=== PATIENT | female | born 1980 | race Caucasian/White ===

== ENCOUNTER 2016-08-08 20:29 | Emergency (ER) | payer BC, OTHER ==
[~2016-08-08] VITALS: Ht 162.6 cm; Wt 94.5 kg
[2016-08-08 20:33] VITALS: Ht 162.6 cm; Wt 94.5 kg
[2016-08-08] MEDS ORDERED: ACETAMINOPHEN 325 MG TAB PO ONE (23:00)
--- NOTE | 2016-08-08 23:23 | ERD ---
ER Documentation Chief Complaint Date/Time DATE: 08/08/16 TIME: 23:18 Chief Complaint 7 weeks , vag bleeding today HPI This pleasant 33-year-old female presenting to emergency department today with her for vaginal bleeding. Patient reports that she is according to home test, approximately 7 weeks. Last menstrual period June 26, 2016. Patient reports that she started bleeding yesterday described as blood on toilet paper with wiping, she also had similar symptoms this morning she is not bleeding now. Patient denies dysuria, nausea, vomiting , or dizziness. Patient reports difficulty eating or drinking, she denies any pelvic cramping or back pain. ROS All systems reviewed and are negative except as per history of present illness. Medications Home Meds Active Scripts Acetaminophen* (Tylophen*) 500 Mg Capsule, 1 CAP PO Q6H Y for PAIN AND OR ELEVATED TEMP, #20 CAP Prov:ALLY DORADO NP 08/10/16 Reported Medications [none] Unknown Strength No Conflict Check 08/10/16 Allergies Allergies: Coded Allergies: No Known Allergy (Unverified , 08/08/16) PMhx/Soc Medical and Surgical Hx: pt denies Medical Hx, pt denies Surgical Hx History of Surgery: No Anesthesia Reaction: No Hx Neurological Disorder: No Hx Respiratory Disorders: No Hx Cardiac Disorders: No Hx Psychiatric Problems: No Hx Miscellaneous Medical Probl: No Hx Alcohol Use: No Hx Substance Use: No Hx Tobacco Use: No Smoking Status: Never smoker Physical Exam Vitals Vitals stable, triage notes reviewed Physical Exam Const: No acute distress Head: Atraumatic Eyes: Normal Conjunctiva no pallor, PERRLA ENT: Normal External Ears, Nose and Mouth. Mucous membranes moist Neck: Resp: Cardio: Abd: Soft, non tender, non distended. Normal bowel sounds, negative CVA tenderness Skin: Back: No midline or flank tenderness Ext: No cyanosis, or edema Neur: Awake and alert Psych: Normal Mood and Affect Results 24 hrs Laboratory Tests Test 08/08/16 22:45 08/08/16 23:34 08/08/16 23:38 Urine Color LT. YELLOW Urine Clarity CLEAR Urine pH 6.0 Urine Specific [place] 1.010 Urine Ketones NEGATIVE Urine Nitrite NEGATIVE Urine Bilirubin NEGATIVE Urine Urobilinogen 0.2 E.U./dL Urine Leukocyte Esterase TRACE Urine Microscopic RBC 5-10/HPF Urine Microscopic WBC 5-10/HPF Urine Squamous Epithelial Cells FEW Urine Hemoglobin 1+ Urine Glucose NEGATIVE% Urine Total Protein NEGATIVE Bedside Urine pH (LAB) 6.5 Bedside Urine Protein (LAB) Negative Bedside Urine Glucose (UA) Negative Bedside Urine Ketones (LAB) Negative Bedside Urine Blood 2+ Bedside Urine Nitrite (LAB) Negative Bedside Urine Leukocyte Esterase (L Negative White Blood Count 7.510^3/ul Red Blood Count 4.1210^6/ul Hemoglobin 12.7g/dl Hematocrit 37.6% Mean Corpuscular Volume 91.3fl Mean Corpuscular Hemoglobin 30.8pg Mean Corpuscular Hemoglobin Concent 33.8g/dl Red Cell Distribution Width 12.7% Platelet Count 46305^3/UL Mean Platelet Volume 10.7fl Neutrophils % 64.1% Lymphocytes % 28.1% Monocytes % 6.3% Eosinophils % 0.8% Basophils % 0.4% Nucleated Red Blood Cells % 0.0/100WBC Neutrophils # 4.810^3/ul Lymphocytes # 2.110^3/ul Monocytes # 0.510^3/ul Eosinophils # 0.110^3/ul Basophils # 0.010^3/ul Nucleated Red Blood Cells # 0.010^3/ul Beta HCG, Quantitative 666.4mIU/ml Current Medications Medications (Trade) Dose Ordered Sig/Anne-Marie Route PRN Reason Start Time Stop Time Status Last Admin Dose Admin Acetaminophen (Tylenol Tab) 650 mg ONCE ONCE PO 08/08/16 23:00 08/08/16 23:03 DC 08/08/16 23:30 Urinalysis presents with microscopic hematuria, trace leukocytes, no nitrates. Procedures/MDM PROCEDURE: US OB. CLINICAL INDICATION: Vaginal bleeding. TECHNIQUE: Multiple sonographic images of the pelvis were obtained. Transabdominal and transvaginal views of the pelvis are available for review. The images were reviewed on a PACS workstation. COMPARISON: No prior studies are available for comparison. FINDINGS: The uterus measures 9.4 x 5.3 x 7.3 cm. A 0.29 cm sonolucency seen within the fundal endometrial canal. If this represents a gestational sac, its size corresponds to a 0-btrg-6-day . No subchorionic hemorrhage is identified. The right ovary measures 3.4 x 2.2 x 2.4 cm. There is a 1.6 cm right ovarian cyst which contains a thin, avascular septation, likely benign. The left ovary measures 2.9 x 1.5 x 2.3 cm. Vascular flow is demonstrated to both ovaries. The adnexa are unremarkable. There is no free fluid. IMPRESSION: 1. There is a 0.29 cm sonolucency within the fundal endometrial canal, nonspecific but possibly an early gestational sac. If this does represent a gestational sac, its size corresponds to a 4-qjdm-0-day . Continued follow-up is recommended. 2. Benign appearing 1.6 cm right ovarian cyst. 3. Normal appearance of the left ovary. This 35-year-old female presents to emergency department with positive home test, and vaginal bleeding. She reports vaginal bleeding is on toilet paper not actively bleeding at this time. Suspected threatened miscarriage, ectopic , normal early . Urinalysis is negative for evidence of infection, trace leukocytes suspected as contaminated or vaginal farrukh. Beta quant at 666.4. OB ultrasound transabdominal and transvaginal views documents a 0.29 cm sonolucencies seen within the fundal endometrial cavity if this represents a gestational sac size corresponds to 4 weeks 6 day no subchorionic hemorrhage is identified the right ovary presents with a 1.6 cm ovarian cysts which contains a thin avascular septation left likely benign, left normal-appearing left ovary vascular flow demonstrated to both arteries, the adnexa are unremarkable, there is no free fluid. And able to diagnose intrauterine at this time. Patient was advised to return to emergency room in 48 hours for repeat beta quant. Return to emergency room as needed bleeding, abdominal pain. I feel patient is appropriate for outpatient management, to schedule appointment with cooking teacher , strict return to emergency precautions advised as stated above. I feel the patient is stable for discharge at this time. I have discussed results, examination findings, the treatment plan with the patient and family present prior to discharge. Indications for emergent reevaluation, side effects of medication were also discussed. All questions were answered. Patient verbalizes understanding and agrees with plan of care. Departure Diagnosis: Primary Impression: Vaginal bleeding Additional Impression: Possible , not confirmed Condition: Good Additional Instructions: Thank you for for coming to [facility] for your care today. Please ask your nurse or provider if you have questions about your care today and do not leave until all your questions have been answered. Please use any medications given as directed and follow-up with your doctor (or the doctor you were referred to) in the next 2-3 days. If you do not have a primary care doctor you may follow up at the [facility] (listed below). You may also use motrin and tylenol as needed for fever and/or pain unless instructed otherwise by your provider or nurse. Indications for more urgent follow-up have been discussed, but you may return to the Emergency Department at ANY time for any worrisome or worsening symptoms. If you have abdominal pain, please know that no test or exam you received is perfect and you should follow up within 8 hours for continued pain. If you had any imaging studies today, such as an X-Ray or CT Scan, these studies will be reviewed later by a radiologist. You will be called if there are important findings that were not identified today, so make sure the contact information you provided at registration is correct. If you received any narcotic pain control medicine today, such as Vicodin, Morphine or Dilaudid, your coordination and judgment may be affected for a number of hours. Please do not drive or operate heavy machinery, and you may want someone to assist you at home. If you were given a prescription for narcotic medication, be aware that it is very addictive- use sparingly and only if necessary. JULIA BOSTON Aug 08, 2016 23:22
[2016-08-08 23:34] LABS: URINE BLOOD (Dip) POC 2+ (NEGATIVE)
[2016-08-09 00:09] LABS: ADD SCAN DIFF NO
--- NOTE | 2016-08-09 00:12 | RADRPT ---
PROCEDURE: US OB. CLINICAL INDICATION: Vaginal bleeding. TECHNIQUE: Multiple sonographic images of the pelvis were obtained. Transabdominal and transvagin al views of the pelvis are available for review. The images were reviewed on a PACS workstation. COMPARISON: No prior studies are available for comparison. FINDINGS: The uterus measures 9.4 x 5.3 x 7.3 cm. A 0.29 cm sonolucency seen within the fundal endometrial can al. If this represents a gestational sac, its size corresponds to a 2-ckni-2-day . No subc horionic hemorrhage is identified. The right ovary measures 3.4 x 2.2 x 2.4 cm. There is a 1.6 cm right ovarian cyst which contains a thin, avascular septation, likely benign. The left ovary measures 2.9 x 1.5 x 2.3 cm. Vascular dwayne w is demonstrated to both ovaries. The adnexa are unremarkable. There is no free fluid. IMPRESSION: 1. There is a 0.29 cm sonolucency within the fundal endometrial canal, nonspecific but possibly an early gestational sac. If this does represent a gestational sac, its size corresponds to a 4-week-6 -day . Continued follow-up is recommended. 2. Benign appearing 1.6 cm right ovarian cyst. 3. Normal appearance of the left ovary. RPTAT: HTAR .Jason Murguia MD, MD Date Time Electronically viewed and signed by .Jason Murguia MD, MD on 08/09/2016 00:11 .R/
[2016-08-09 00:17] LABS: BASOPHILS % 0.4 % (0.0-2.0); EOSINOPHILS # 0.1 10^3/ul (0.0-0.5); EOSINOPHILS % 0.8 % (0.0-7.0); HEMATOCRIT 37.6 % (37.0-47.0); HEMOGLOBIN 12.7 g/dl (12.0-16.0); LYMPHOCYTES # 2.1 10^3/ul (0.8-2.9); LYMPHOCYTES % 28.1 % (15.0-51.0); MEAN CORPUSCULAR HEMOGLOBIN 30.8 pg (29.0-33.0); MEAN CORPUSCULAR HGB CONC 33.8 g/dl (32.0-37.0); MEAN CORPUSCULAR VOLUME 91.3 fl (82.0-101.0); MEAN PLATELET VOLUME 10.7 fl (7.4-10.4); MONOCYTE # 0.5 10^3/ul (0.3-0.9); MONOCYTES % 6.3 % (0.0-11.0); NEUTROPHIL # 4.8 10^3/ul (1.6-7.5); NEUTROPHILS % 64.1 % (39.0-77.0); PLATELET COUNT 244 10^3/UL (140-415); RED BLOOD COUNT 4.12 10^6/ul (4.20-5.40); RED CELL DISTRIBUTION WIDTH 12.7 % (11.5-14.5); WHITE BLOOD COUNT 7.5 10^3/ul (4.8-10.8)
[2016-08-09 00:55] LABS: ADD UMIC YES; URINE BILIRUBIN (Dip) NEGATIVE (NEGATIVE); URINE BLOOD (Dip) 1+ (NEGATIVE); URINE COLOR LT. YELLOW (YELLOW); URINE GLUCOSE (Dip) NEGATIVE (NEGATIVE); URINE KETONES (Dip) NEGATIVE (NEGATIVE); URINE LEUKOCYTE ESTERASE (Dip) TRACE (NEGATIVE); URINE NITRITE (Dip) NEGATIVE (NEGATIVE); URINE TOTAL PROTEIN (Dip) NEGATIVE (NEGATIVE); URINE UROBILINOGEN (Dip) 0.2 E.U./dL (0.1-1.0)
[2016-08-09 01:11] LABS: SQUAMOUS EPITHELIAL CELL,UR FEW
[2016-08-09 01:43] VITALS: BP 128/68; PULSE 83; RESP 18; TEMP 98.2
[2016-08-10] MEDS ORDERED: ACET500C5 PO (22:41)
== END 2016-08-09 01:45 | disposition home or self-care (01) ==
LOC: FTE 20:29
DX: O20.9 Hemorrhage in early pregnancy, unspecified (principal); R10.2 Pelvic and perineal pain; Z3A.01 Less than 8 weeks gestation of pregnancy
CPT/HCPCS: 76801; 76817; 81001; 81003; 84702; 85025; 86900; 86901; Z7610; 36415

== ENCOUNTER 2016-08-10 19:47 | Emergency (ER) | payer BC ==
[~2016-08-10] VITALS: Ht 170.2 cm; Wt 96.0 kg
[2016-08-10 20:12] VITALS: Ht 170.2 cm; Wt 96.0 kg
--- NOTE | 2016-08-10 21:19 | ERD ---
ER Documentation Chief Complaint Date/Time DATE: 08/10/16 TIME: 21:15 Chief Complaint 48 hr hcg blood draw, was here wednesday HPI This 35-year-old female presents to emergency department for complaints of continuous vaginal bleeding heavier bleeding for the last 2 days, patient was seen here 2 days ago, was advised to return in 48 hours for repeat beta hCG quantitative, patient is approximately 5 weeks , LMP was 06/20/2016. Patient denies any flank pain or abdominal pain. Patient denies any nausea or vomiting. Patient denies hematuria or dysuria. ROS All systems reviewed and are negative except as per history of present illness. Medications Home Meds Reported Medications [none] Unknown Strength No Conflict Check 08/10/16 Allergies Allergies: Coded Allergies: No Known Allergy (Unverified , 08/08/16) PMhx/Soc Medical and Surgical Hx: pt denies Medical Hx, pt denies Surgical Hx History of Surgery: No Anesthesia Reaction: No Hx Neurological Disorder: No Hx Respiratory Disorders: No Hx Cardiac Disorders: No Hx Psychiatric Problems: No Hx Miscellaneous Medical Probl: No Hx Alcohol Use: No Hx Substance Use: No Hx Tobacco Use: No Smoking Status: Never smoker FmHx Family History: No coronary disease, No diabetes, No other Physical Exam Vitals Vital Signs Date Time Temp Pulse Resp B/P Pulse Ox O2 Delivery O2 Flow Rate FiO2 08/10/16 20:12 99.3 84 20 120/65 100 Physical Exam GENERAL: The patient is well developed and appropriate for usual state of health, in no apparent distress. CHEST: Clear to auscultation bilaterally. There are no rales, wheezes or rhonchi. HEART: Regular rate and rhythm. No murmurs, clicks, rubs or gallops. No S3 or S4. ABDOMEN: Soft, nontender and nondistended. Good bowel sounds. No rebound or guarding. No gross peritonitis. No gross organomegaly or masses. No Martino sign or McBurney point tenderness. BACK: No midline or flank tenderness. EXTREMITIES: Equal pulses bilaterally. There is no peripheral clubbing, cyanosis or edema. No focal swelling or erythema. Full range of motion. Grossly neurovascularly intact. NEURO: Alert and oriented. Cranial nerves 2-12 intact. Motor strength in all 4 extremities with 5/5 strength. Sensation grossly intact. Normal speech and gait. SKIN: There is no apparent rash or petechia. The skin is warm and dry. HEMATOLOGIC AND LYMPHATIC: There is no evidence of excessive bruising or lymphedema. No gross cervical, axillary, or inguinal lymphadenopathy. VAGINAL: Small amount of blood in the vaginal vault, cervical os is closed. No adnexal tenderness or cervical motion tenderness noted. Result Diagram: 08/10/162112 Results 24 hrs Laboratory Tests Test 08/10/16 21:13 White Blood Count 7.710^3/ul Red Blood Count 4.0110^6/ul Hemoglobin 12.3g/dl Hematocrit 37.3% Mean Corpuscular Volume 93.0fl Mean Corpuscular Hemoglobin 30.7pg Mean Corpuscular Hemoglobin Concent 33.0g/dl Red Cell Distribution Width 12.6% Platelet Count 59614^3/UL Mean Platelet Volume 11.0fl Neutrophils % 65.3% Lymphocytes % 26.5% Monocytes % 6.5% Eosinophils % 1.0% Basophils % 0.4% Nucleated Red Blood Cells % 0.0/100WBC Neutrophils # 5.010^3/ul Lymphocytes # 2.010^3/ul Monocytes # 0.510^3/ul Eosinophils # 0.110^3/ul Basophils # 0.010^3/ul Nucleated Red Blood Cells # 0.010^3/ul Beta HCG, Quantitative 810.3mIU/ml Current Medications Medications (Trade) Dose Ordered Sig/Anne-Marie Route PRN Reason Start Time Stop Time Status Last Admin Dose Admin Acetaminophen (Tylenol Tab) 500 mg ONCE STAT PO 08/10/16 22:12 08/10/16 22:13 DC 08/10/16 22:23 Patient was given medication for pain here in emergency department, after treatment, patient verbalized feeling much better. Patient's pain is improved. PROCEDURE: US OB. CLINICAL INDICATION: Vaginal Bleed () TECHNIQUE: Transabdominal and transvaginal views of the pelvis are available for review. COMPARISON: OB sonogram 08/08/2016. FINDINGS: The uterus is anteflexed with trace fluid present in the cul-de-sac. The uterus measures 9.9 cm sagittal by 5.2 cm AP by 5.7 cm transverse. There is a 0.54 x 0.35 x 0.46 cm fluid collection in the endometrial canal which may be the result of a gestational sac or decidual reaction. [place]-rump length: Not available. heart rate: Not detected. Nuchal translucency: Not applicable. Ultrasound estimated gestational age: Not applicable. The left ovary measured 3.2 x 1.9 x 1.8 cm with normal blood flow and Doppler imaging. The right ovary measures 3 x 2.5 x 2.6 cm The right ovary contains a cyst measuring 1.4 x 1.4 cm. IMPRESSION: 1. There is an elliptical cystic fluid collection contain endometrial canal. There is no evidence of a yolk sac or pole. Differential diagnosis includes normal early IUP or ectopic . Follow-up imaging is recommended. 2. When no IUP is demonstrated, correlation with serial beta HCG is recommended. With a quantitative beta HCG >2000, the differential diagnosis includes spontaneous or ectopic . Therefore, clinical follow-up is recommended including correlation with serial quantitative beta HCG levels and repeat sonogram with rising levels and/or/or localized or persistent pain. With quantitative beta HCG < 2000, the differential diagnosis includes early normal IVP or spontaneous or ectopic . Therefore, clinical follow-up is recommended including correlation with serial quantitative beta HCG levels and arising levels and / or persistent pain. 3. 1.4 cm right ovarian cyst, possible corpus luteal cyst of . 4. Trace fluid in the cul-de-sac. Physician Mau Date Time Electronically viewed and signed by Physician Mau on 08/10/2016 22:01 SHAYY/ CC: ALLY DORADO RN CASE MANAGEMENT I discussed this case with OB Laborist, , recommended to have patient return in 48 hours for repeat beta hCG quantitative, only mild elevation of beta hCG noted at this time, so may be consistent of possible spontaneous that can be also early , no adnexal mass noted indicating ectopic , patient's pain is controlled at this time, also beta hCG is in the 800s, strict return to the precaution for ectopic symptoms, patient was counseled about this, verbalized understanding. Procedures/MDM Medical Decision Making: Patients vaginal bleeding is most likely consistent of possible threatened . Patient does not show any evidence of hypovolemic shock. Patients hemoglobin and hematocrit is stable. There is low suspicion for ectopic . MILI results show no intrauterine BetaHCG Quantitative is very low he patient is Rh+, does not need RhoGAM this time. There is no signs of symptoms of dehydration. There is low suspicion for sepsis. Patient appears well and is hemodynamically stable. Disposition: Home. Condition: Stable Prescription: Tylenol Instructions: Patient is advised to do bed rest, avoid heavy lifting, and avoid having sex until cleared by OB doctor. Patient is advised to follow up with OB doctor or here at the ER in 48 hours for reevaluation of symptoms, repeat beta HCG quantitative and ultrasound. Patient is advised that is symptoms are worst, severe bleeding, dizziness, severe abdominal pain, fever, worst signs and symptoms to return to the emergency department immediately. Departure Diagnosis: Primary Impression: Threatened Condition: Stable Patient Instructions: Possible Miscarriage (Threatened ) Additional Instructions: Patient is advised to do bed rest, avoid heavy lifting, and avoid having sex until cleared by OB doctor. Patient is advised to follow up with OB doctor or here at the ER in 48 hours for reevaluation of symptoms, repeat beta HCG quantitative and ultrasound. Patient is advised that is symptoms are worst, severe bleeding, dizziness, severe abdominal pain, fever, worst signs and symptoms to return to the emergency department immediately. ALLY DORADO NP Aug 10, 2016 21:19
[2016-08-10 21:34] LABS: ADD SCAN DIFF NO
[2016-08-10 21:37] LABS: BASOPHILS % 0.4 % (0.0-2.0); EOSINOPHILS # 0.1 10^3/ul (0.0-0.5); HEMATOCRIT 37.3 % (37.0-47.0); HEMOGLOBIN 12.3 g/dl (12.0-16.0); LYMPHOCYTES % 26.5 % (15.0-51.0); MEAN CORPUSCULAR HEMOGLOBIN 30.7 pg (29.0-33.0); MONOCYTE # 0.5 10^3/ul (0.3-0.9); MONOCYTES % 6.5 % (0.0-11.0); NEUTROPHILS % 65.3 % (39.0-77.0); PLATELET COUNT 240 10^3/UL (140-415); RED BLOOD COUNT 4.01 10^6/ul (4.20-5.40); RED CELL DISTRIBUTION WIDTH 12.6 % (11.5-14.5); WHITE BLOOD COUNT 7.7 10^3/ul (4.8-10.8)
--- NOTE | 2016-08-10 22:01 | RADRPT ---
PROCEDURE: US OB. CLINICAL INDICATION: Vaginal Bleed () TECHNIQUE: Transabdominal and transvaginal views of the pelvis are available for review. COMPARISON: OB sonogram 08/08/2016. FINDINGS: The uterus is anteflexed with trace fluid present in the cul-de-sac. The uterus measures 9.9 cm sag ittal by 5.2 cm AP by 5.7 cm transverse. There is a 0.54 x 0.35 x 0.46 cm fluid collection in the e ndometrial canal which may be the result of a gestational sac or decidual reaction. [place]-rump length:Not available. heart rate:Not detected. Nuchal translucency:Not applicable. Ultrasound estimated gestational age:Not applicable. The left ovary measured 3.2 x 1.9 x 1.8 cm with normal blood flow and Doppler imaging. The right ov luigi measures 3 x 2.5 x 2.6 cm The right ovary contains a cyst measuring 1.4 x 1.4 cm. IMPRESSION: 1. There is an elliptical cystic fluid collection contain endometrial canal. There is no evidence o f a yolk sac or pole. Differential diagnosis includes normal early IUP or ectopic . Follow-up imaging is recommended. 2. When no IUP is demonstrated, correlation with serial beta HCG is recommended. With a quantitative beta HCG >2000, the differential diagnosis includes spontaneous or ecto pic . Therefore, clinical follow-up is recommended including correlation with serial quant itative beta HCG levels and repeat sonogram with rising levels and/or/or localized or persistent rajan n. With quantitative beta HCG < 2000, the differential diagnosis includes early normal IVP or spontaneo us or ectopic . Therefore, clinical follow-up is recommended including correlatio n with serial quantitative beta HCG levels and arising levels and / or persistent pain. 3. 1.4 cm right ovarian cyst, possible corpus luteal cyst of . 4. Trace fluid in the cul-de-sac. Physician Mau Date Time Electronically viewed and signed by Christ Li Physician on 08/10/2016 22:01 GAIL
[2016-08-10] MEDS ORDERED: ACETAMINOPHEN 500 MG TAB PO STA (22:12)
[2016-08-10] MEDS ORDERED: ACET500C5 PO (22:41)
[2016-08-10 23:15] VITALS: BP 133/73; PULSE 86; RESP 20
== END 2016-08-10 23:16 | disposition home or self-care (01) ==
LOC: FTE 19:47
DX: O20.0 Threatened abortion (principal); Z3A.01 Less than 8 weeks gestation of pregnancy
CPT/HCPCS: 76801; 76817; 84702; 85025; Z7502; Z7610

== ENCOUNTER 2016-08-12 20:29 | Emergency (ER) | payer BC ==
[~2016-08-12] VITALS: Ht 157.5 cm; Wt 94.5 kg
[~2016-08-12 20:29] MED LIST: ACET500C5 PO
[2016-08-12 21:41] VITALS: Ht 157.5 cm; Wt 94.5 kg
--- NOTE | 2016-08-12 22:27 | ERD ---
ER Documentation Chief Complaint Date/Time DATE: 08/12/16 TIME: 22:26 Chief Complaint Vaginal bleed x6 days. 6 weeks HPI 35-year-old female presents here in emergency department for repeat beta hCG quantitative, patient has been bleeding for 6 days, was most to possibly have miscarriage, patient was seen here 2 days ago, has had increasing beta hCG quantitative, was advised to return here for reevaluation of symptoms. Patient' s bleeding has improved, so only 1 pad today. Patient denies any pelvic pain. Patient verbalized ROS All systems reviewed and are negative except as per history of present illness. Medications Home Meds Active Scripts Acetaminophen* (Tylophen*) 500 Mg Capsule, 1 CAP PO Q6H Y for PAIN AND OR ELEVATED TEMP, #20 CAP Prov:ALLY DORADO NP 08/10/16 Reported Medications [none] Unknown Strength No Conflict Check 08/10/16 Allergies Allergies: Coded Allergies: No Known Allergy (Unverified , 08/08/16) PMhx/Soc Medical and Surgical Hx: pt denies Medical Hx, pt denies Surgical Hx History of Surgery: No Anesthesia Reaction: No Hx Neurological Disorder: No Hx Respiratory Disorders: No Hx Cardiac Disorders: No Hx Psychiatric Problems: No Hx Miscellaneous Medical Probl: No Hx Alcohol Use: No Hx Substance Use: No Hx Tobacco Use: No FmHx Family History: No coronary disease, No diabetes, No other Physical Exam Vitals Vital Signs Date Time Temp Pulse Resp B/P Pulse Ox O2 Delivery O2 Flow Rate FiO2 08/12/16 21:41 98.9 100 18 150/78 100 Physical Exam GENERAL: The patient is well developed and appropriate for usual state of health, in no apparent distress. CHEST: Clear to auscultation bilaterally. There are no rales, wheezes or rhonchi. HEART: Regular rate and rhythm. No murmurs, clicks, rubs or gallops. No S3 or S4. ABDOMEN: Soft, nontender and nondistended. Good bowel sounds. No rebound or guarding. No gross peritonitis. No gross organomegaly or masses. No Martino sign or McBurney point tenderness. BACK: No midline or flank tenderness. EXTREMITIES: Equal pulses bilaterally. There is no peripheral clubbing, cyanosis or edema. No focal swelling or erythema. Full range of motion. Grossly neurovascularly intact. NEURO: Alert and oriented. Cranial nerves 2-12 intact. Motor strength in all 4 extremities with 5/5 strength. Sensation grossly intact. Normal speech and gait. SKIN: There is no apparent rash or petechia. The skin is warm and dry. HEMATOLOGIC AND LYMPHATIC: There is no evidence of excessive bruising or lymphedema. No gross cervical, axillary, or inguinal lymphadenopathy. Results 24 hrs Laboratory Tests Test 08/12/16 22:33 Beta HCG, Quantitative 100.2mIU/ml Procedures/MDM Medical Decision Making: Patients vaginal bleeding is most likely consistent of spontaneous . Patient does not show any evidence of hypovolemic shock. Patients hemoglobin and hematocrit is stable. There is low suspicion for ectopic . repeat ultrasound Not indicated at this time. BetaHCG Quantitative is significantly lower than 2 days ago is consistent with spontaneous . Patient's bleeding is also controlled. The patient is Rh+ , does not need RhoGAM this time. There is no signs of symptoms of dehydration. There is low suspicion for sepsis. Patient appears well and is hemodynamically stable. Disposition: Home. Condition: Stable Instructions: Patient is advised to do bed rest, avoid heavy lifting, and avoid having sex until cleared by OB doctor. Patient is advised to follow up with OB doctor for reevaluation of symptoms. Patient is advised that is symptoms are worst, severe bleeding, dizziness, severe abdominal pain, fever, worst signs and symptoms to return to the emergency department immediately. Departure Diagnosis: Primary Impression: Spontaneous Condition: Stable Patient Instructions: Miscarriage, Spontaneous (Completed) Additional Instructions: Patient is advised to do bed rest, avoid heavy lifting, and avoid having sex until cleared by OB doctor. Patient is advised to follow up with OB doctor for reevaluation of symptoms. Patient is advised that is symptoms are worst, severe bleeding, dizziness, severe abdominal pain, fever, worst signs and symptoms to return to the emergency department immediately. ALLY DORADO NP Aug 12, 2016 22:26
[2016-08-13 00:38] VITALS: BP 129/76; PULSE 92
== END 2016-08-13 00:38 | disposition home or self-care (01) ==
LOC: FTE 20:29
DX: O03.9 Complete or unspecified spontaneous abortion without complication (principal); Z3A.01 Less than 8 weeks gestation of pregnancy
CPT/HCPCS: 36415; 84702; 99283